=== PATIENT | female | born 2000 | race African-American/Black ===

== ENCOUNTER 2020-09-30 22:07 | Emergency (ER) | payer MEDICAID, OTHER ==
[~2020-09-30] VITALS: Ht 157.5 cm; Wt 104.3 kg
[2020-09-30] MEDS ORDERED: ACETAMINOPHEN 500 MG TAB PO ONE (22:30)
[2020-09-30 22:47] LABS: Basophils # (auto) 0.1 10 ^3/uL (0-0.2); Basophils % (auto) 1.6 % (0.0-2.0); Eosinophils # (auto) 0 10 ^3/uL (0-0.8); Eosinophils % (auto) 0.1 % (0.0-7.0); Hematocrit 44.8 % (36.0-46.0); Hemoglobin 14.8 g/dL (12.2-16.2); Lymphocytes # (auto) 0.9 10 ^3/uL (0.4-5.4); Lymphocytes % (auto) 23.8 % (10.0-50.0); Mean Corpuscular Hemoglobin 27.1 pg (28.0-32.0); Mean Corpuscular Volume 82.1 fL (80.0-100.0); Monocytes # (auto) 0.4 10 ^3/uL (0-1.3); Monocytes % (auto) 9.6 % (0.0-12.0); Neutrophils # (auto) 2.5 10 ^3/uL (1.6-8.6); Neutrophils % (auto) 64.9 % (37.0-80.0); Nucleated Red Blood Cells % 0.1 %; Red Blood Cells 5.45 10^6/uL (4.0-5.20); White Blood Cell 3.9 10^3/uL (4.4-10.8)
[2020-09-30 23:01] LABS: Albumin 3.8 g/dL (3.4-5.0); Calcium 8.7 mg/dL (8.5-10.1); Potassium 3.9 mmol/L (3.5-5.1)
[2020-09-30 23:05] LABS: BUN/Creatinine Ratio 7.7; Bilirubin, Total 0.5 mg/dL (0.2-1.0)
[2020-09-30 23:58] VITALS: BP 119/86
[2020-10-01 00:31] LABS: Urine Bacteria NONE SEEN /hpf (None Seen); Urine Blood Negative /uL (Negative); Urine Mucus FEW (None Seen); Urine Specific Gravity 1.032 (1.001-1.035); Urine WBC 6 /hpf (0 - 5)
== END 2020-10-01 00:28 | disposition left against medical advice (07) ==
LOC: EDBD 22:07 → ER 22:08
DX: R10.9 Unspecified abdominal pain (principal); Z53.21 Procedure and treatment not carried out due to patient leaving prior to being seen by health care provider
CPT/HCPCS: 36415; 80053; 81001; 81025; 83690; 85025

== ENCOUNTER 2024-01-22 21:24 | Emergency (ER) | payer MEDICAID ==
[~2024-01-22] VITALS: Ht 160 cm; Wt 144.6 kg
[2024-01-22 21:44] VITALS: BP 138/89; PULSE 117; RESP 16; O2SAT 96
[2024-01-22 22:00] LABS: Urine Bacteria None Seen /hpf (None Seen)
[2024-01-22 22:05] LABS: Urine Blood 3+ /uL (Negative); Urine Clarity Turbid (Clear); Urine Color Light-Orange (Yellow); Urine Hyaline Cast FEW /lpf (0 - 2); Urine Mucus FEW (None Seen); Urine Protein, UAD 1+ (Negative); Urine Specific Gravity 1.039 (1.001-1.035); Urine Urobilinogen Normal (Negative); Urine WBC 43 /hpf (0 - 5); Urine pH 5.5 (5.0-9.0)
--- NOTE | 2024-01-22 22:07 | ED.PDOC ---
CRIB TENDER HPI Comments 23-year-old female who came to ER for vaginal bleeding. Patient is a , approximately 5 to 6 weeks . States earlier today she started having lower abdominal cramping pain with vaginal bleeding. Took Tylenol for the pain.. Patient coming in for evaluation and management. Chief Complaint: Vaginal Bleed Time Seen by MD: 22:07 Reviewed Notes: Nurses Notes Allergies: Coded Allergies: NO KNOWN ALLERGIES (Unverified , 05/07/15) Information Source: Patient Mode of Arrival: Ambulatory Timing: Hours Prehospital treatment: None Severity: Moderate Vaginal Discharge: None Bleeding Quality: Bright Red Vaginal Mass: None Onset Of Mass/Bleeding: Spontaneous Sexual Activity: Last Consensual [place]: Unknown History of: Current Associated Signs and Symptoms: Vaginal Bleeding, Abdominal Pain Past Medical History PAST MEDICAL HISTORY: Denies Surgical History: Denies all surgeries FLIGHT PURSER History: Denies all FLIGHT PURSER Hx 1 Para 0 LMP 12/10/2023 Family History Family History: Reviewed,noncontributory to illness Social History Smoker: Non-Smoker Alcohol: Denies ETOH Use Drugs: Denies Drug Use Lives In: Home Constitutional: denies: chills, diaphoresis, fatigue, fever, malaise, sweats, weakness, others EENTM: denies: blurred vision, double vision, ear bleeding, ear discharge, ear drainage, ear pain, ear ringing, eye pain, eye redness, hearing loss, mouth pain, mouth swelling, nasal discharge, nose bleeding, nose congestion, nose pain, photophobia, tearing, throat pain, throat swelling, voice changes, others Respiratory: denies: cough, hemoptysis, orthopnea, SOB at rest, shortness of breath, SOB with excertion, stridor, wheezing, others Cardiovascular: denies: chest pain, dizzy spells, diaphoresis, Dyspnea on ex ertion, edema, irregular heart beat, left arm pain, lightheadedness, palpitations, PND, syncope, others Gastrointestinal: reports: abdominal pain; denies: abdomen distended, blood streaked bowels, constipated, diarrhea, dysphagia, difficulty swallowing, hematemesis, melena, nausea, poor appetite, poor fluid intake, rectal bleeding, rectal pain, vomiting, others Genitourinary: reports: abnormal vagina bleeding; denies: burning, dyspareunia, dysuria, flank pain, frequency, hematuria, incontinence, pain, , vagina discharge, urgency, others Neurological: denies: dizziness, fainting, headache, left sided numbness, left sided weakness, numbness, paresthesia, pre-existing deficit, right sided numbness, right sided weakness, seizure, speech problems, tingling, tremors, weakness, others Musculoskeletal: denies: back pain, gout, joint pain, joint swelling, muscle pain, muscle stiffness, neck pain, others Integumetry: denies: bruises, change in color, change in hair/nails, dryness, laceration, lesions, lumps, rash, wounds, others Allergic/Immunocompromised: denies: Difficulty Healing, Frequent Infections, Hives, Itching, others Hematologic/Lymphatic: denies: anemia, blood clots, easy bleeding, easy bruising, swollen glands, others Endocrine: denies: excessive hunger, excessive sweating, excessive thirst, excessive urination, flushing, intolerance to cold, intolerance to heat, unexplained weight gain, unexplained weight loss, others Psychiatric: denies: anxiety, bipolar disorder, depression, hopeless, panic disorder, schizophrenia, sleepless, suicidal, others Physical Exam General Appearance: No Apparent Distress, Normal HEENT: Normal ENT Inspection, Pharynx Normal, TMs Normal Neck: Full Range of Motion, Non-Tender, Normal, Normal Inspection Respiratory: Chest Non-Tender, Lungs Clear, No Accessory Muscle Use, No Respiratory Distress, Normal Breath Sounds Cardiovascular: No Edema, No JVD, No Murmur, No Gallop, Normal Peripheral Pulses, Regular Rate/Rhythm Breast Exam: Deferred Gastrointestinal: No Organomegaly, Non Tender, No Pulsatile Mass, Normal Bowel Sounds, Soft Genitalia: Deferred Pelvic: Deferred Rectal: Deferred Extremities: No calf tenderness, Normal capillary refill, Normal inspection, Normal range of motion, Non-tender, No pedal edema Musculoskeletal : Apperance: Normal Neurologic: Alert, engineering secretary II-XII nml as Tested, No Motor Deficits, Normal Affect, Normal Mood, No Sensory Deficits Cerebellar Function: Normal Reflexes: Normal Skin: Dry, Normal Color, Warm Lymphatic: No Adenopathy Was a procedure done? Was a procedure done?: No Differential Diagnosis (FLIGHT PURSER) Vaginal Bleeding: - Missed, - Threatened, Blood Loss Anemia, Menstrual Bleeding, UTI X-Ray, Labs, Meds, VS Vital Signs Date Time Temp Pulse Resp B/P (MAP) Pulse Ox O2 Delivery O2 Flow Rate FiO2 01/22/24 21:44 98.2 117 16 138/89 (105) 96 Lab Test 01/22/24 22:20 01/22/24 21:47 Range/Units White Blood Count 6.7 4.4-10.8 10^3/uL Red Blood Count 4.85 4.0-5.20 10^6/uL Hemoglobin 13.9 12.2-16.2 g/dL Hematocrit 40.8 36.0-46.0 % Mean Corpuscular Volume 84.2 80.0-100.0 fL Mean Corpuscular Hemoglobin 28.6 28.0-32.0 pg Mean Corpuscular Hemoglobin Concent 34.0 32.0-36.0 g/dL Red Cell Distribution Width 14.7 H 11.8-14.3 % Platelet Count 307 140-450 10^3/uL Mean Platelet Volume 7.0 6.9-10.8 fL Neutrophils (%) (Auto) 58.3 37.0-80.0 % Lymphocytes (%) (Auto) 30.8 10.0-50.0 % Monocytes (%) (Auto) 9.5 0.0-12.0 % Eosinophils (%) (Auto) 0.4 0.0-7.0 % Basophils (%) (Auto) 1.0 0.0-2.0 % Neutrophils # (Auto) 3.9 1.6-8.6 10 ^3/uL Lymphocytes # (Auto) 2.1 0.4-5.4 10 ^3/uL Monocytes # (Auto) 0.6 0-1.3 10 ^3/uL Eosinophils # (Auto) 0 0-0.8 10 ^3/uL Basophils # (Auto) 0.1 0-0.2 10 ^3/uL Nucleated Red Blood Cells 0.0 % Sodium Level 141 136-145 mmol/L Potassium Level 3.5 3.5-5.1 mmol/L Chloride Level 109 H 98-107 mmol/L Carbon Dioxide Level 25 20-31 mmol/L Anion Gap 7 5-15 Blood Urea Nitrogen 7 L 9-23 mg/dL Creatinine 0.98 0.550-1.02 mg/dL Glomerular Filtration Rate Calc 83 >90 mL/min BUN/Creatinine Ratio 7.1 L 10.0-20.0 Serum Glucose 116 H 74-106 mg/dL Calcium Level 10.0 8.7-10.4 mg/dL Beta HCG, Quantitative 3.1 1.5-4.2 mIU/mL Urine Color Light-orange Yellow Urine Clarity Turbid H Clear Urine pH 5.5 5.0-9.0 Urine Specific [place] 1.039 H 1.001-1.035 Urine Protein 1+ H Negative Urine Ketones 1+ H Negative Urine Blood 3+ H Negative /uL Urine Nitrite Negative Negative Urine Bilirubin Negative Negative Urine Urobilinogen Normal Negative mg/dL Urine Leukocyte Esterase 2+ Negative /uL Urine RBC 2527 0 - 4 /hpf Urine WBC 43 0 - 5 /hpf Urine Squamous Epithelial Cells Few <5 /hpf Urine Bacteria None seen None Seen /hpf Urine Hyaline Casts Few 0 - 2 /lpf Urine Mucus Few None Seen Urine Glucose Normal Normal mg/dL Time of 1ST Reevaluation: 21:55 Reevaluation 1ST: Unchanged Patient Education/Counseling: Diagnosis, Treatment Family Education/Counseling: No Family Present Departure 1 Departure Time of Disposition: 00:23 (Patient is likely having a miscarriage. We will discharge patient home with outpatient follow up) Impression: Primary Impression: Threatened miscarriage in early Disposition: 01 HOME / SELF CARE / HOMELESS Condition: Stable Additional Instructions: You have a threatened miscarriage. You should follow up with OBGYN within three days to recheck your blood work and perform another ultrasound. If your symptoms worsen or you have any other concerns then please return to the ER. Discharged With: Self Critical Care Note Critical Care Time?: No Stability Stability form required: No Heart Score Heart Score: Heart Score Response (Comments) Value History N/A 0 EKG N/A 0 Age N/A 0 Risk Factors N/A 0 Troponin N/A 0 Total 0 I personally scribed for IDANIA LINK MD ([email or web address]) on 01/22/24 at 22:07. Electronically submitted by Dajuan Iniguez ([email or web address]). IDANIA LINK MD Jan 22, 2024 22:07
[2024-01-22 22:43] LABS: Basophils # (auto) 0.1 10 ^3/uL (0-0.2); Eosinophils # (auto) 0 10 ^3/uL (0-0.8); Eosinophils % (auto) 0.4 % (0.0-7.0); Hematocrit 40.8 % (36.0-46.0); Hemoglobin 13.9 g/dL (12.2-16.2); Lymphocytes # (auto) 2.1 10 ^3/uL (0.4-5.4); Lymphocytes % (auto) 30.8 % (10.0-50.0); Mean Corpuscular Hemoglobin 28.6 pg (28.0-32.0); Mean Corpuscular Volume 84.2 fL (80.0-100.0); Monocytes # (auto) 0.6 10 ^3/uL (0-1.3); Monocytes % (auto) 9.5 % (0.0-12.0); Neutrophils # (auto) 3.9 10 ^3/uL (1.6-8.6); Neutrophils % (auto) 58.3 % (37.0-80.0); Platelet Count (auto) 307 10^3/uL (140-450); Red Blood Cells 4.85 10^6/uL (4.0-5.20); Red Cell Distribution Width 14.7 % (11.8-14.3); White Blood Cell 6.7 10^3/uL (4.4-10.8)
[2024-01-22 22:51] LABS: Chloride 109 mmol/L (98-107); Potassium 3.5 mmol/L (3.5-5.1); Sodium 141 mmol/L (136-145)
[2024-01-22 22:52] LABS: Anion Gap 7 (5-15); Carbon Dioxide 25 mmol/L (20-31)
[2024-01-22 22:57] LABS: BUN/Creatinine Ratio 7.1 (10.0-20.0); Blood Urea Nitrogen 7 mg/dL (9-23); Glucose 116 mg/dL (74-106)
== END 2024-01-23 00:23 | disposition home or self-care (01) ==
LOC: ER 21:24
DX: O20.0 Threatened abortion (principal); Z3A.01 Less than 8 weeks gestation of pregnancy
CPT/HCPCS: 36415; 80048; 81001; 84702; 85025